=== PATIENT | female | born 1990 | race Caucasian/White ===

== ENCOUNTER 2022-03-27 15:56 | Outpatient (CLI) | payer OTHER, SELFPAY ==
[2022-03-29 23:05] LABS: Estradiol Premenol Female 45 pg/mL
[2022-03-30 02:08] LABS: Follicle Stimulating Hormone 6.6 IU/L
[2022-03-30 02:19] LABS: Prolactin 6.7 ng/mL (2.8-29.2)
[2022-03-31 20:09] LABS: Progesterone, HPLC-MS/MS <0.10 ng/mL
== END 2022-03-27 15:57 | disposition home or self-care (01) ==
LOC: NFLDREF 15:56
PROVIDERS: Visit Provider Obstetrics & Gynecology
DX: E28.2 Polycystic ovarian syndrome (principal); N97.0 Female infertility associated with anovulation
CPT/HCPCS: 82670; 83001; 83002; 84144; 84146; 84443

== ENCOUNTER 2022-04-19 16:06 | Outpatient (CLI) | payer OTHER, SELFPAY ==
[2022-04-21 19:07] LABS: Estradiol Premenol Female 37 pg/mL
[2022-04-21 21:05] LABS: Follicle Stimulating Hormone 6.9 IU/L; Luteinizing Hormone, Serum 7.7 IU/L
== END 2022-04-19 16:07 | disposition home or self-care (01) ==
PROVIDERS: Visit Provider Obstetrics & Gynecology
DX: N97.0 Female infertility associated with anovulation (principal)
CPT/HCPCS: 82670; 83001; 83002; 83520

== ENCOUNTER 2022-06-20 16:06 | Outpatient (CLI) | payer OTHER, SELFPAY ==
--- NOTE | 2022-06-20 16:00 | CRLHL7_ITS ---
For Patients: As a result of the Cures Act, medical imaging exams and procedure reports are released immediately into your electronic medical record. You may view this report before your referring provider. If you have questions, please contact your health care provider. INDICATION: First trimester scan, establish dates. COMPARISON: None. TECHNIQUE: Real-time lake-scale imaging of the pelvis was performed. FINDINGS: Sonographic imaging demonstrates a single living intrauterine gestation. The embryo demonstrates a regular cardiac rate measuring 171 beats per minute. The embryo`s crown-rump length measurement of 2.2 cm corresponds to a gestational age of 8 weeks 6 days with a sonographic due date of 01/24/2023. There is a normal-appearing yolk sac. There are no gross abnormalities noted within the embryo at this early state of development. The gestational sac has a normal appearance. There is no evidence of a perigestational hemorrhage. The amount of fluid within the sac appears appropriate for gestational age. The cervix is closed. The myometrium appears normal. The ovaries are of normal size. Corpus luteal cyst right ovary. There are no suspicious fluid collections noted in the cul-de-sac. IMPRESSION: Normal first trimester OB ultrasound exam. Gestational age calculated at 8 weeks 6 days with a sonographic due date of 01/24/2023. Dictated by Mihir Chamberlain MD @ 06/21/2022 12:49:05 PM (Electronically Signed)
== END 2022-06-20 16:07 | disposition home or self-care (01) ==
LOC: US 16:06
PROVIDERS: Visit Provider Physician Assistant
DX: Z34.91 Encounter for supervision of normal pregnancy, unspecified, first trimester (principal); Z3A.08 8 weeks gestation of pregnancy
CPT/HCPCS: 76817; 86703; 86803; 86850; 86900; 86901; 87340; 87491; 87591

== ENCOUNTER 2022-06-20 17:23 | Outpatient (CLI) | payer OTHER, SELFPAY ==
[2022-06-20 22:59] LABS: Chlamydia DNA Amplified* Not Detected (No Detected); GC DNA Amplified* Not Detected (No Detected)
== END 2022-06-20 17:24 | disposition home or self-care (01) ==
PROVIDERS: Visit Provider Physician Assistant
DX: Z34.91 Encounter for supervision of normal pregnancy, unspecified, first trimester (principal); Z3A.09 9 weeks gestation of pregnancy
CPT/HCPCS: 86592; 86703; 86762; 86787; 86803; 86850; 86900; 86901; 87086; 87340; 87491; 87591

== ENCOUNTER 2022-09-12 13:58 | Outpatient (CLI) | payer OTHER, SELFPAY ==
--- NOTE | 2022-09-12 14:00 | CRLHL7_ITS ---
For Patients: As a result of the Century Cures Act, medical imaging exams and procedure reports are released immediately into your electronic medical record. You may view this report before your referring provider. If you have questions, please contact your health care provider. INDICATION: Evaluate anatomy. COMPARISON: 06/20/2022 TECHNIQUE: Real time lake scale imaging of the fetus was performed as well as color Doppler analysis of the umbilical vessels. FINDINGS: Sonographic imaging demonstrates a single living intrauterine gestation. Fetus demonstrates a regular cardiac rate of 147 beats per minute. Fetus has a breech position. The placenta lies right posterior without evidence of placenta previa. The edge of the placenta is located more than 5 cm from the internal cervical os. Amniotic fluid volume appears normal. Single deepest vertical pocket: 5.0 cm. The cervix is closed and measures 4.5 cm in length. The composite ultrasound gestational age is calculated at 20 weeks 5 days with an estimated sonographic due date of 01/25/2023. The estimated weight is 377 grams which lies at the 27th %. The following biometric measurements were obtained: Biparietal diameter: 4.8 cm/20 weeks 4 days 29th% Head circumference: 18.2 cm/20 weeks 4 days 17th% Abdominal circumference: 15.9 cm/21 weeks 0 days 39th% Femur length: 3.4 cm/20 weeks 4 days 22nd% The HC/AC ratio measures: 1.14 range (1.06-1.25) On anatomic survey, there is a normal appearance of the cerebral ventricles, cavum septi pellucidi, cisterna magna and cerebellum. The nose, lips, and facial profile appear normal. The cervical, thoracic and lumbar spine are well visualized and appear normal. There is a normal four-chamber heart view and the left and right ventricular outflow tracts appear normal. The diaphragm and stomach appear normal. The kidneys and bladder also appear normal. There is a normal three-vessel cord and cord insertion site. The four extremities appear normal. IMPRESSION: Normal OB ultrasound exam with concordance of clinical and sonographic dating. No intrinsic abnormalities noted on anatomic survey. Dictated by Mihir Chamberlain MD @ 09/12/2022 4:52:40 PM (Electronically Signed)
== END 2022-09-12 13:59 | disposition home or self-care (01) ==
LOC: US 13:59
PROVIDERS: Visit Provider Obstetrics & Gynecology
DX: Z34.92 Encounter for supervision of normal pregnancy, unspecified, second trimester (principal); Z3A.20 20 weeks gestation of pregnancy
CPT/HCPCS: 76805

== ENCOUNTER 2022-10-27 14:11 | Outpatient (CLI) | payer OTHER, SELFPAY | END 2022-10-27 14:12 | disposition home or self-care (01) | LOC: NFLDREF 10-30 09:17 | PROVIDERS: Visit Provider Advanced Practice Midwife | DX: Z34.93 Encounter for supervision of normal pregnancy, unspecified, third trimester (principal); Z3A.28 28 weeks gestation of pregnancy | CPT/HCPCS: 86592 ==

== ENCOUNTER 2022-12-22 09:02 | Outpatient (CLI) | payer OTHER, SELFPAY ==
[2022-12-23 10:22] LABS: Strep B DNA Probe Positive (Negative)
[2022-12-23 10:23] LABS: Strep B Susceptibility Needed? No
== END 2022-12-22 09:03 | disposition home or self-care (01) ==
LOC: NFLDREF 09:02
PROVIDERS: Visit Provider Obstetrics & Gynecology
DX: Z34.93 Encounter for supervision of normal pregnancy, unspecified, third trimester (principal)
CPT/HCPCS: 87081; 87653

== ENCOUNTER 2022-12-25 16:01 | Outpatient (CLI) | payer OTHER, SELFPAY ==
--- NOTE | 2022-12-25 16:00 | CRLHL7_ITS ---
For Patients: As a result of the Century Cures Act, medical imaging exams and procedure reports are released immediately into your electronic medical record. You may view this report before your referring provider. If you have questions, please contact your health care provider. INDICATION: SIZE Discrepancy COMPARISON: 09/12/2022 TECHNIQUE: Real time lake scale imaging of the fetus was performed. FINDINGS: Sonographic imaging demonstrates a single living intrauterine gestation. Fetus demonstrates a regular cardiac rate of 134 beats per minute. Fetus has a vertex position. The placenta lies right posterior. Amniotic fluid volume appears normal and there is a single deepest vertical pocket: 6.8 cm. The estimated weight is 2811gm which lies at the 50th %. On the prior OB ultrasound exam dated 09/12/2022 the estimated weight was at the 27th%. BPD 11th percentile. HC 16th percentile. AC 75th percentile. FL 36th percentile. The HC/AC ratio measures 0.97 range (0.93-1.09). IMPRESSION: Sonographic gestational age 35 weeks 4 days and sonographic due date 01/25/2023. Good correlation with dates. Normal interval growth. Estimated weight 50th percentile. Abdominal circumference 75th percentile. Dictated by Mihir Chamberlain MD @ 12/26/2022 9:23:08 AM (Electronically Signed)
== END 2022-12-25 16:02 | disposition home or self-care (01) ==
LOC: US 16:01
PROVIDERS: Visit Provider Advanced Practice Midwife
DX: Z34.93 Encounter for supervision of normal pregnancy, unspecified, third trimester (principal); Z3A.35 35 weeks gestation of pregnancy
CPT/HCPCS: 76816

== ENCOUNTER 2023-01-15 19:32 | Outpatient (CLI) | payer OTHER, SELFPAY ==
[2023-01-15 19:58] VITALS: BP 125/71; PULSE 100
[2023-01-15 20:00] VITALS: RESP 17; TEMP 36.9
--- NOTE | 2023-01-15 22:05 | PC.OBNST ---
NST Note NST Note Start: 01/15/23 19:37 Freq: ONCE Status: Active Protocol: Document 01/15/23 21:36 SUNNY (Rec: 01/15/23 21:54 SUNNY [id number]) NST Note 2 Para (# of births) 1 EDC 01/22/23 Gestational Age In Weeks & Days 39 Weeks & 0 Days Patient Presented with Complaint(s) of Contractions/cramping Other Complaints Pt presents to Center complaining about contraction pain in lower abdomen and back . RN checked and patient was still 1cm from her clinic appointment from 01/12. RN rechecked in 1 hour and patient was still 1 cm. Reactive Yes Appropriate for Gestational Age Yes KENYATTA Roberts RN Date 01/15/23 Reactive Yes Appropriate for Gestational Age Yes KENYATTA Maguire RN Date 01/15/23 OB NST charge Yes Complete NST Note via Write Note Yes The provider's electronic signature indicates the NST is reactive/appropriate for gestational age. *Note to provider: If an addendum is required, open the patient's chart and click on the note under the Nurse/Allied Health tab.
== END 2023-01-15 21:36 | disposition home or self-care (01) ==
LOC: OB OUT 19:33 → OB 19:35
PROVIDERS: Visit Provider Advanced Practice Midwife
DX: O47.1 False labor at or after 37 completed weeks of gestation (principal); Z3A.39 39 weeks gestation of pregnancy
CPT/HCPCS: 59025; 99213

== ENCOUNTER 2023-01-24 07:13 | Inpatient (IN) | payer OTHER, SELFPAY ==
[2023-01-24] VITALS (55 sets, daily range): BP systolic 103–148; BP diastolic 52–87; PULSE 75–137; RESP 16–17; TEMP 36.4–36.8; O2SAT 62–100; BMI 39.6
--- NOTE | 2023-01-24 08:12 | W.PM.LDBA ---
Subjective History of Present Illness Narrative: Radha is being admitted to Labor and Delivery for an elective induction of labor. She is a 32 year old at 40.2 weeks gestation. Her full history and physical was dictated by Don Jara CNM on 01/05/23. Please see this for details. Specific Issues/Plans H&P 01/05/23 by Don Jara CNM 1. History of PCOS, conceived with Clomid. On metformin, will continue through 13 weeks 2. Obesity, BMI 38.0 Hemoglobin A1c:5.1% 3. History of depression and anxiety. Currently doing well without treatment. Has responded well to Celexa in the past. 4. Nausea and vomiting Zofran 5. History of , arrest of dilation and intolerance of labor -Desires -12/22 TOLAC visit done, consent for TOLAC done -Growth US at 36 weeks, EFW 50%ile 6. Normal Pap with positive HPV, negative for high-risk types in 2019 Pap at new OB: ASC-H, + HPV, neg for 16&18 [place]: 08/11 no concern for high grade lesion, no biopsy obtained; Repeat 7. Elevated WBC at [facility], follow up call: URI/cough symptoms, planning urgent care visit consider repeat CBC at next visit, repeat: remained elevated, lingering illness symptom Repeat at next visit: Normal 8. GBS+ Called and left message for patient recommending flu vaccine on 01/12. Covid: ? Tdap: received Comments: An informed consent for induction was signed in the clinic, options were reviewed today with patient and her . Risks, benefits and alternatives were reviewed and with shared decision making they have agreed with a plan of Cook balloon placement and low dose IV Pitocin. Radha would like to avoid AROM if possible. OB - Problem Based A/P Additional Plan (1) 40 weeks gestation of : Status: Acute (2) Encounter for elective induction of labor: Status: Acute (3) History of section complicating : Status: Acute Plan ASSESSMENT:? at 40.2 weeks gestation? GBS positive? Uncomplicated ? Elective IOL? TOLAC ?? PLAN:? 1. Antibiotic prophylaxis treatment per protocol? 2. Reviewed risks and benefits of IOL with pitocin and/or Cook catheter. Pt prefers Cook with low dose IV Pitcocin. ? 3. Candidate for analgesia of choice. ? 4. Anticipate ?? 5. IV placement for induction and TOLAC 6. Continuous monitoring Delivery/Labor/Induction Plan Plan: induction Induction method: Intracervical balloon catheter (low dose IV Pitocin per protocol) OB Exam Physical Exam Vital signs: Temp Pulse Resp BP 97.6 F 94 16 126/81 01/24/23 08:11 01/24/23 08:11 01/24/23 08:11 01/24/23 08:11 Narrative: Vitals Reviewed Constitutional:? Alert and oriented x3 HEENT:? Normocephalic, atraumatic Neck:? Supple Lungs:? Clear to auscultation bilaterally Heart:? Regular rate and rhythm, no murmur, rub or gallop Abdomen:? Soft, nontender, and gravid. Vertex by Tee's, confirmed with cervical exam. Extremities:? No edema or erythema Cervix: 1 cm/50%/.2 station/vertex NST: 130 bpm/moderate variability/+accelerations/-decelerations/rare contractions Detailed Labor and Delivery Exam Patient Gravid: Yes
[2023-01-24 09:28] LABS: Basophils Percent Auto 0.4 % (0.0-3.0); Hematocrit 37.8 % (33.0-51.0); Hemoglobin* 12.8 gm/dL (12.0-16.0); Immature Granulocytes Pct Auto 0.3 %; Lymphocytes Percent Auto 15.8 % (20-44); Mean Corpuscular HGB Conc 34 gm/dL (32-36); Mean Corpuscular Hemoglobin 31 pg (26-34); Mean Corpuscular Volume 93 fL (80-100); Neutrophils Percent Auto 74.5 % (42.0-72.0); Platelet Count* 291 K/uL (140-440); RDW Coefficient of Variation % 12.4 % (11.5-15.5); Red Blood Count 4.07 m/uL (4.00-5.20); White Blood Count* 13.05 K/uL (4.50-11.00)
[2023-01-24 09:39] LABS: Slide Review Reflex Yes
[2023-01-24] MEDS: LACTATED RINGERS 1000 ML 1,000 ML 125 ML IV ×2 (09:39→22:49)
[2023-01-24] MEDS: OXYTOCIN 30 unit/500 ML in NS 30 UNIT/500 ML BAG IVPB ×2 (09:44→21:17)
[2023-01-24] MEDS: AMPICILLIN 2 GM in 0.9 % SODIUM CHLORIDE Mini-bag 100 ML IVPB (09:49)
[2023-01-24 12:57] LABS: Alanine Aminotransferase* 12 U/L (4-35); Aspartate Amino Transferase* 17 U/L (12-35); Blood Urea Nitrogen* 4 mg/dL (5-24); Creatinine* 0.5 mg/dL (0.5-1.5); Est. Creatinine Clearance* 130.12; Estimated Glomerular Filt Rate 129 ml/min
[2023-01-24 13:33] LABS: Total Protein Urine 53 mg/dL
[2023-01-24 13:34] LABS: Creatinine Urine 33.1 mg/dL
[2023-01-24] MEDS: LACTATED RINGERS 1000 ML 1,000 ML IV (14:04)
[2023-01-24] MEDS: AMPICILLIN 1 GM in 0.9 % SODIUM CHLORIDE Mini-bag 100 ML IVPB ×3 (14:08→22:08)
--- NOTE | 2023-01-24 16:03 | PM.OBPNL ---
Subjective Date Seen: 01/24/23 Narrative: Radha is coping well with labor pain/contractions. ?Baldo is with her for support. ?She would like to continue with breathing and repositioning for comfort and pain management. She had a Cook catheter placed this morning around 0800, Had SROM for clear fluid at 0926 and Cook was removed at that time. IV Pitocin has been given per protocol for induction, last dose was 4mu/hr. Recently the IV Pitocin was turned off for concerns about late decelerations. Currently, there are no late decelerations noted in the last 5 minutes. Radha has been tearful at times and relates this to her last labor which resulted in a C/S. Reassurance given and time allowed to process. ? Objective Exam: VSS, afebrile General Appearance:? Calm, cooperative. ?No acute distress. ? Psychiatric Exam: Alert and oriented, appropriate affect Abdomen: Gravid Ctx: ?Q 3-4 min apart. ? ?Moderate ? FHTs: ?Baseline: 125. ? ? Variability: moderate. ?Accels: present. ? ?Decels: ?early and occasional lates. SVE: 3/90%/-2 Membranes: ?SROM clear fluid ?AROM X 6.5 hours Vital Signs: Last Vital Signs Temp 97.5 F L 01/24/23 15:06 Pulse 98 01/24/23 15:05 Resp 17 01/24/23 15:06 BP 133/79 01/24/23 15:05 Pulse Ox 100 01/24/23 15:43 Pelvic Exam Dilation (cm): 3 Effacement (%): 90 Station: -2 Contractions Monitor mode: External Contraction pattern: Regular Contraction intensity: Moderate Assessment Assessment: induction ongoing Station: -2 Amniotic Membrane Status: SROM Status: Category ll Heart Rate Baseline: 125 Skilled Nursing Variability: Moderate (6-25) Monitor Accelerations: Present Monitor Decelerations: Late Plan Plan: Assessment:?? at 40.2 gestation?? GBS positive Patient is coping well with challenges of labor.?? Labor type: Induced, Early labor? complicated by: 1. History of PCOS, conceived with Clomid. 2. Obesity, BMI 38.0 3. History of depression and anxiety. Currently doing well without treatment. 4. History of , arrest of dilation and intolerance of labor 5. GBS+ Labor complicated by: NA? Plan:?? GBS +,Antibiotic prophylaxis treatment per protocol? Continue with routine intrapartum cares as ordered.?? Induction ongoing, IV Pitocin off at this time. Restart if contractions space out and reassuring FHTs. Continuous monitoring per protocol for TOLAC and induction. Patient encouraged to move and change positions to promote physiologic labor and .?? Nonpharmacologic comfort measures per patient preference. Candidate for analgesia of choice if desired. Anticipate progress to NVD. ?
[2023-01-24 16:23] LABS: Slide Review Acceptable Review (Acceptable)
--- NOTE | 2023-01-24 21:30 | PM.OBPNL ---
Subjective Date Seen: 01/24/23 Narrative: ?Radha is coping well with labor pain/contractions. ?Baldo is with her for support. ?Her contractions are still painful for her although they have space out in frequency. Recent vaginal exam is unchanged from previous check and no change in station. Discussed current progress and recommended we restart IV Pitocin per protocol. Agrees with the plan that she start to use Nitrous for comfort and pain management.?A FSE was placed earlier for difficulty monitoring heart rate. She has continued to change positions frequently with the help of nursing staff. Objective Exam: VSS, afebrile General Appearance:? Calm, cooperative. ?No acute distress. ? Psychiatric Exam: Alert and oriented, appropriate affect Abdomen: Gravid Ctx: ?Q 6-8 min apart. ? ?Moderate ? FHTs: ?Baseline: 120. ? ? Variability: moderate. ?Accels: +. ? ?Decels: ?early. SVE: 4/100/-2 Membranes: ?SROM ?AROM X 12 hours Vital Signs: Last Vital Signs Temp 98.1 F 01/24/23 19:41 Pulse 91 01/24/23 18:08 Resp 16 01/24/23 19:41 BP 124/65 01/24/23 18:08 Pulse Ox 98 01/24/23 18:03 Pelvic Exam Dilation (cm): 4 Effacement (%): 100 Station: -2 Contractions Monitor mode: External Contraction pattern: Regular Contraction intensity: Moderate Assessment Assessment: induction ongoing Station: -2 Amniotic Membrane Status: SROM Status: Category ll Heart Rate Baseline: 120 Intermediate Variability: Moderate (6-25) Monitor Accelerations: Present Monitor Decelerations: Early Plan Plan: Assessment:?? at 40.2 gestation?? GBS positive Patient is coping well with challenges of labor.?? Labor type: Induced, Early labor? complicated by: 1. History of PCOS, conceived with Clomid. 2. Obesity, BMI 38.0 3. History of depression and anxiety. Currently doing well without treatment. 4. History of , arrest of dilation and intolerance of labor 5. GBS+ Plan:?? GBS +,Antibiotic prophylaxis treatment per protocol? Continue with routine intrapartum cares as ordered.?? Induction ongoing, Restart IV Pitocin per protocol. Continuous monitoring per protocol for TOLAC and induction. Patient encouraged to move and change positions to promote physiologic labor and .?? Nonpharmacologic comfort measures per patient preference. Candidate for analgesia of choice if desired. Currently using Nitrous per protocol. Anticipate progress to NVD.
[2023-01-24] MEDS: ROPIVACAINE 0.2% 100 ml 100 ML 10 MG EPIDURAL (22:25)
[2023-01-24] MEDS: LIDOCAINE 2% (PF) 5 ML VIAL EPIDURAL (22:25)
--- NOTE | 2023-01-24 22:29 | P.ANBPRC_ITS ---
[facility] Medical History Oligomenorrhea ?N91.5 - Oligomenorrhea, unspecified (ICD-10) History of female infertility ?Z87.42 - Personal history of other diseases of the female genital tract (ICD-10) History of abnormal cervical Papanicolaou smear ?Z87.42 - Personal history of other diseases of the female genital tract (ICD-10) Infertility associated with anovulation ?N97.0 - Female infertility associated with anovulation (ICD-10) PCOS (polycystic ovarian syndrome) ?E28.2 - Polycystic ovarian syndrome (ICD-10) Surgical History Status post primary low transverse section (12/10/19) ?Z98.891 - History of uterine scar from previous surgery (ICD-10) History of third molar tooth extraction (2020) ?K08.409 - Partial loss of teeth, unspecified cause, unspecified class (ICD- 10) History of laparoscopic cholecystectomy (2020) ?Z90.49 - Acquired absence of other specified parts of digestive tract (ICD- 10) Family History Brother Congenital heart defect Mother Pancreatitis Depression Brother Diabetes Maternal Grandmother Breast cancer Lung cancer Maternal Grandfather Colon cancer Paternal Grandmother Macular degeneration Social History What is your current living situation?: I presently have a place to live Problems where you live: no known problems In the past 12 months, utilities in danger of being shut off: no In past 12 months, lack of transportation kept you from medical appts, meetings, work, or getting things needed for daily living: no In the past 12 mos, have been you worried that your food would run out before you had money to buy more?: never true In the past 12 mos, the food you bought just didn't last and you didn't have money to buy more?: never true Smoking Status: Never smoker How often does anyone, including family, friends and others, physically hurt you : never How often does anyone, including family, friends and others, insult or talk down to you: never How often does anyone, including family, friends and others, threaten you with harm: never How often does anyone, including family, friends and others, scream or curse at you: never Little interest or pleasure in doing things: not at all Feeling down, depressed, or hopeless: several days Meds Home Medications and Allergies Home Medications Medication Instructions Recorded Confirmed Type prenat.vits,bessy,kzt-xral-qkugp 1 tab PO QDAY 06/20/22 01/24/23 History triamcinolone acetonide 0.1 % 1 applic topical BID PRN 11/10/22 01/24/23 History topical cream loratadine 10 mg tablet (Allergy 10 mg PO DAILY 01/15/23 01/24/23 History Relief (loratadine)) Allergies Allergy/AdvReac Type Severity Reaction Status Date / Time azithromycin Allergy Unknown Diarrhea Verified 01/19/23 15:28 Results Labs Labs: Laboratory Results - last 24 hr 01/24/23 01/24/23 01/24/23 09:22 12:03 13:00 WBC 13.05 H RBC 4.07 Hgb 12.8 Hct 37.8 MCV 93 MCH 31 MCHC 34 RDW Coeff of Stephanie 12.4 Plt Count 291 Neut % (Auto) 74.5 H Lymph % (Auto) 15.8 L [place] % (Auto) 7.0 Eos % (Auto) 2.0 Baso % (Auto) 0.4 Neut # (Auto) 9.70 H Lymph # (Auto) 2.10 [place] # (Auto) 0.90 Eos # (Auto) 0.30 Baso # (Auto) 0.10 Abs Immat Gran (auto) 0.00 Imm/Tot Granulo (auto) 0.3 Diff Slide Review Acceptable Review BUN 4 L Creatinine 0.5 Estimated Creat Clear 130.12 Estimated GFR 129 AST 17 ALT 12 Urine Creatinine 33.1 Protein/Creatinin Ratio 1.60 H Urine Total Protein 53 Blood Type O Positive Antibody Screen NEGATIVE Vital Signs Vital Signs: Last Vital Signs Temp 98.1 F 01/24/23 19:41 Pulse 111 H 01/24/23 22:26 Resp 16 01/24/23 19:41 BP 110/65 01/24/23 22:26 Pulse Ox 96 01/24/23 22:27 Weight: 98.203 kg Height: 157.48 cm Anesthesia Procedures Epidural Insertion Patient Location: OB Start Time: 22:00 Stop Time: 22:45 Start Date: 01/24/23 Stop Date: 01/24/23 Reason for Block: primary anesthetic Patient Position: sitting Performed By: Chucky Anderson Preanesthetic Checklist: IV checked, risks and benefits discussed, surgical consent, monitors and equipment checked, pre-op evaluation, timeout performed and anesthesia consent Prep: chlorhexidine gluconate Monitoring: blood pressure monitoring, cardiac monitor technician, continuous pulse oximetry and heart rate Approach: midline Vertebral Space: lumbar (1-5) Needle Type: Tuohy needle Injection Technique: continuous catheter (catheter) Needle gauge: 17 Needle Length (cm): 10 cm Needle Insertion Depth (cm): 5 Catheter Gauge: 19 Catheter Type: multi-orifice Catheter at skin depth (cm): 10 Test Dose Result: negative and lidocaine 1.5% with epinephrine 1 to 200,000
[2023-01-24] MEDS: PHENYLEPHRINE 100 MCG/ML SYRINGE IVP ×3 (22:42→22:50)
[2023-01-24] MEDS: ePHEDrine sulfate 5 MG/ML inj 10 MG IVP (22:54)
[2023-01-24] MEDS: ONDANSETRON 2 MG/ML inj 4 MG IV (23:00)
[2023-01-25] VITALS (149 sets, daily range): BP systolic 90–140; BP diastolic 53–86; PULSE 86–149; RESP 16–17; TEMP 36.7–37.2; O2SAT 90–100
[2023-01-25] MEDS: ePHEDrine sulfate 5 MG/ML inj 10 MG IVP (01:11)
--- NOTE | 2023-01-25 01:43 | PM.OBPNL ---
Subjective Date Seen: 01/25/23 Narrative: ?Radha is coping well with labor pain/contractions. ?Baldo is with her for support. ?She now has an epidural for comfort and pain management. She has continued to reposition in bed often.?Was called to the bedside to evaluate labor progress after episode of late variables which resolved with repositioning and turning off the IV Pitocin. Pitocin rate was 4mu/hr when stopped. Options were discussed to continue with induction or consult with OB for C/S. SVE done, 7cm baby in OT position at this time. Pt and wish to continue with induction. Plan to take break and restart IV Pitocin as needed for adequate contractions, titrate per protocol and response. Objective Exam: VSS, afebrile General Appearance:? Calm, cooperative. ?No acute distress. ? Psychiatric Exam: Alert and oriented, appropriate affect Abdomen: Gravid Ctx: ?Q 2-5 min apart. ? ?Strong FHTs: ?Baseline: 125. ? ? Variability: moderate. ?Accels: +. ? ?Decels: episode of late decelerations, resolved at this time. SVE: 7/100/-2 Membranes: ?SROM X 17 hours Vital Signs: Last Vital Signs Temp 98.6 F 01/25/23 01:13 Pulse 114 H 01/25/23 01:40 Resp 17 01/25/23 01:13 BP 100/54 L 01/25/23 01:40 Pulse Ox 96 01/25/23 01:38 Pelvic Exam Dilation (cm): 7 Effacement (%): 100 Station: -2 Contractions Monitor mode: External Contraction pattern: Regular Contraction intensity: Moderate Pitocin Rate (mU/min): 0 Assessment Station: -2 Amniotic Membrane Status: SROM Status: Category ll Heart Rate Baseline: 125 Agency Sales Management Assistant Variability: Moderate (6-25) Monitor Accelerations: Present Monitor Decelerations: Late Plan Plan: Assessment:?? at 40.3 gestation?? GBS + Patient is coping well with challenges of labor.?? Labor type: Induced, Active labor? complicated by: complicated by: 1. History of PCOS, conceived with Clomid. 2. Obesity, BMI 38.0 3. History of depression and anxiety. Currently doing well without treatment. 4. History of , arrest of dilation and intolerance of labor 5. GBS+ Plan:?? GBS +,Antibiotic prophylaxis treatment per protocol? Continue with routine intrapartum cares as ordered.?? Induction ongoing, Restart IV Pitocin per protocol. Continuous monitoring per protocol for TOLAC and induction. Patient encouraged to move and change positions to promote physiologic labor and .?? Epidural for pain management currently in place. Surgical team and MD notified and on standby. Anticipate progress to NVD.
[2023-01-25] MEDS: OXYTOCIN 30 unit/500 ML in NS 30 UNIT/500 ML BAG IVPB (02:08)
[2023-01-25] MEDS: AMPICILLIN 1 GM in 0.9 % SODIUM CHLORIDE Mini-bag 100 ML IVPB ×2 (02:31→06:05)
[2023-01-25] MEDS: LACTATED RINGERS 1000 ML 1,000 ML 125 ML IV (04:04)
[2023-01-25] MEDS: ROPIVACAINE 0.2% 100 ml 100 ML 10 MG EPIDURAL (07:04)
--- NOTE | 2023-01-25 07:08 | PM.OBPNL ---
Subjective Time Seen by Provider: 07:08 Date Seen: 01/25/23 Narrative: Fabricio Sprague CNM has been to see the patient and attempt E manual rotation of the fetus. I obtained verbal consents from the patient. On exam the presentation was L OT and the vertex was rotated counter-clockwise to direct OA. The patient was then placed on her right side with a peanut ball in place. Cervical exam was 9+ cm/100%/-1 to -2 with significant caput. Objective Vital Signs: Last Vital Signs Temp 98.9 F 01/25/23 05:43 Pulse 111 H 01/25/23 06:56 Resp 17 01/25/23 05:43 BP 107/61 01/25/23 06:56 Pulse Ox 99 01/25/23 07:03 Pelvic Exam Dilation (cm): 7 Effacement (%): 100 Station: -2 Contractions Monitor mode: External Contraction pattern: Regular Contraction intensity: Moderate Pitocin Rate (mU/min): 0 Assessment Station: -2 Amniotic Membrane Status: SROM Status: Category ll Heart Rate Baseline: 125 Monitor Accelerations: Present Monitor Decelerations: Late
--- NOTE | 2023-01-25 08:25 | P.OBPN_ITS ---
Subjective Time Seen by Provider: 08:25 Date Seen: 01/25/23 Narrative: Radha is a at 40 3/7 weeks gestation who was admitted yesterday for elective IOL. Her labor progressed with pitocin to anterior lip. MD Joselo was called to assess due to persistant anterior lip and was able to successfully rotate the head. She has since been laboring in side lying release and is currently sitting in high fowlers. Objective Exam: Objective: Constitutional: Alert and oriented x3, [mild/moderate/severe] distress, coping well Vital signs stable, see nurse documentation Abdomen: gravid, contractions palpate [mild/moderate/strong] with contractions and soft between Cervix: 9.5 cm/+1 station/vertex NST: 135 bpm/moderate variability/15x15 accelerations/no decelerations/contractions every 2-5, difficult to strip picker with [place] due to maternal position Vital Signs: Last Vital Signs Temp 98.1 F 01/25/23 07:25 Pulse 99 01/25/23 10:40 Resp 16 01/25/23 07:25 BP 134/81 01/25/23 10:40 Pulse Ox 100 01/25/23 09:59 Contractions Monitor mode: External Contraction pattern: Regular Contraction intensity: Moderate Pitocin Rate (mU/min): 0 Assessment Station: -2 Amniotic Membrane Status: SROM Status: Category ll Heart Rate Baseline: 125 Monitor Accelerations: Present Monitor Decelerations: Late Plan Plan: Plan recheck in abut 1 hour. If anterior lip still present, consider reducing and attempting to push. Patient agrees with plan. Dr. Juárez aware of patient status. OR Team and MD in house for TOLAC.
[2023-01-25] MEDS: LIDOCAINE 1 % PF 30 ML INJECTION (10:15)
[2023-01-25] MEDS: miSOPROStoL 800 MCG/4 TABLET PR (10:32)
--- NOTE | 2023-01-25 11:07 | W.PM.OBVAGDE ---
OB Procedure Vag Delivery Mother Details Mother Details: The patient is a 32 year-old, 2, now Para 2, admitted on 01/24/23 at 40 2/7 gestation. : 2 Para: 2 Weeks Gestation: 40.3 Admission Date: 01/24/23 Additional Details Amniotic Membrane Status: SROM Amniotic Membrane Rupture Date: 01/24/23 Amniotic Membrane Rupture Time: 09:36 Amniotic Membrane Fluid Description: Clear Analgesia/Anesthesia Type: Epidural Waterbirth: No Pitcoin: Yes Intrapartal Events: Labor Induction and ROM >18 Hours Induction Method: Intracervical balloon catheter and per pitocin protocol Labor Onset: 01:33 Complete: 09:01 Pushin:57 Heart: heart tones during second stage were Category II with variables and lates during contractions with pushing. At times, slow return to baseline but improved with guided breathing and repositioning. Overall reassuring. Delivery Details Delivery Date: 01/25/23 Delivery Time: 10:01 Route of delivery: Gender: Female Viability: Alive; Heart Rate Present Position at Delivery: OA Delivery Details: Patient was admitted for elective induction which was started with cook catheter and pitocin. She SROM'd at 0936 with clear fluid. Her labor progress slowly and she remained anterior lip for multiple hours. MD was consulted to assess position and a successful attempt was made to rotate to OA. Additional attempts were made with maternal positioning to resolve remaining cervix but ultimately the decision was made to attempt to reduce cervix and push past it. Cervix was reduced with good maternal pushing effort at 0857 and complete at 0901. of a viable female at 1001 in semi-fowlers on the bed. Vertex delivered OA. Tight nuchal identified at delivery, unable to reduce. Attempted to delivery through but ultimately reduced after delivery of body. No shoulder. Body delivered easily and without incident. passed to mothers abdomen and appeared stunned with minimal efforts made with stimulation. Decision made to clamp and cut, <30 seconds, and infant was taken to warmer for further assessment. CPAP was given for a few minutes by RN then recovered and spontaneously cried. APGARS were 3 at one minute and 8 at five minutes respectively. Mouth was bulb suctioned. Intact placenta with a 3 vessel cord delivered spontaneously at 1008. Fundus firm. 1st degree vaginal laceration identified and repaired in typical fashion. QBL 700 cc, most from laceration. Patient received pitocin and cytotec. Mother and baby stable; mother plans to breastfeed. weight 3010g. GBS +, adequately treated. 1 Minute Interval Total Score: 3 5 Minute Interval Total Score: 8 Additional Details Placenta Delivery Time: 10:08 Placental Delivery Description: Spontaneous Delivery repair: Vicryl Procedure Done: Global Blood Loss: 700 Laceration: Vaginal - 2nd Degree Blood Loss Measurement Type: QBL Bakri Used: No Sponge/Need Count Correct: Yes Cord Vessel Description: 3 Vessels, Nuchal Cord, Tight and Reduced (after of body) Event Summary Status: Mother and infant were stable after delivery. Disposition: floor
[2023-01-25] MEDS: IBUPROFEN 600 MG TABLET PO ×2 (12:58→19:21)
[2023-01-26 00:05] VITALS: BP 110/71; PULSE 93; RESP 16; TEMP 36.7; O2SAT 97
[2023-01-26] MEDS: IBUPROFEN 600 MG TABLET PO ×4 (01:11→21:10)
[2023-01-26 07:14] LABS: Hemoglobin* 9.2 gm/dL (12.0-16.0)
--- NOTE | 2023-01-26 07:29 | PM.OBPNVD1 ---
OB - PN:Subj Subjective Date Seen: 01/26/23 Patient comments OB post-: pain well controlled, perineal pain, tolerating diet and flatus present [place] status: and doing well [place] feeding status: exclusively Narrative: Radha is a 32 y.o. who was admitted to [facility] for elective induction of labor. ?She had an uncomplicated NVD.?The patient feels well. ?The pain is well controlled with current medications. ?She has no new complaints. ?She is breast feeding and reports things are going well.? the patient has done well.? Vitals have been stable.? She has remained afebrile.? Has a good appetite, is tolerating a general diet. ?She is voiding without difficulty.? She is passing gas and has not had a bowel movement.? She is ambulating and denies any dizziness.? Has small amount of rubra lochia. OB - PN: Obj Exam Physical Exam: Vital signs: Temp Pulse Resp BP Pulse Ox O2 Del Method 98.0 F 93 16 110/71 97 Room Air 01/26/23 00:05 01/26/23 00:05 01/26/23 00:05 01/26/23 00:05 01/26/23 00:05 01/26/23 00:05 Narrative: GENERAL APPEARANCE:? normal affect, alert, no distress MOOD:? appropriate CHEST:? clear to auscultation HEART:? regular rate and rhythm ABDOMEN:? soft, non-tender the uterine fundus is At Umbilicus, Midline and is appropriate for the stage of recovery. PERINEUM:? mild edema of the perineum, there is a Vaginal Laceration, 2nd degree, that is healing well. EXTREMITIES:? normal and no edema [Incision]: [Healing well, no surrounding erythema, abnormal induration or discharge] OB - PN: Obj Data Labs Labs: Laboratory Results - last 24 hr 01/26/23 07:07 Hgb 9.2 L OB - PN: A/P Delivery Assessment and Plan (1) care and examination immediately after delivery: Status: Acute (2) Anemia due to acute blood loss: Status: Acute (3) Lactating mother: Status: Acute Plan day: 1 Plan: routine care Comments: plan: Routine care , may see if needed Hgb 9.2. Iron supplement ordered orally every other day Anticipate discharge tomorrow.
[2023-01-26 07:40] VITALS: BP 109/73; PULSE 79; RESP 16; TEMP 36.6; O2SAT 97
[2023-01-26] MEDS: FERROUS SULFATE 325 MG TABLET PO (08:45)
[2023-01-26] MEDS: DOCUSATE SODIUM 100 MG CAPSULE PO (08:45)
[2023-01-26 16:15] VITALS: BP 103/68; PULSE 102; RESP 16; TEMP 36.6; O2SAT 97
[2023-01-26 20:14] VITALS: BP 110/70; PULSE 103; RESP 16; TEMP 36.6; O2SAT 98
[2023-01-27 04:04] VITALS: BP 114/75; PULSE 92; RESP 18; TEMP 36.9; O2SAT 97
[2023-01-27] MEDS: IBUPROFEN 600 MG TABLET PO ×2 (04:08→10:17)
[2023-01-27 08:13] VITALS: BP 110/75; PULSE 90; TEMP 36.9; O2SAT 98
--- NOTE | 2023-01-27 09:06 | P.DS_ITS ---
DS: Providers Provider Date Seen: 01/27/23 Date of admission: 01/24/23 07:13 Primary care physician: Not a Local Provider Admitting Clinician: Fabricio Sprague CNM Attending Physician on discharge: Fabricio Sprague CNM Date of Discharge: 01/27/23 DS: Diagnosis Discharge Diagnosis (1) Lactating mother: Status: Acute (2) care following vaginal delivery: Status: Acute (3) Anemia due to acute blood loss: Status: Acute Exam Narrative: Exam Narrative: GENERAL APPEARANCE:? normal affect, alert, no distress? MOOD:? appropriate? CHEST:? clear to auscultation and percussion? HEART:? regular rate and rhythm? ABDOMEN:? soft, non-tender the uterine fundus is U/2 and is appropriate for the stage of recovery.? PERINEUM:? mild edema of the perineum, there is a 2nd degree vaginal that is healing well.? EXTREMITIES:? normal and no edema? Const: Vital Signs, click to edit/add: Vital Signs - 24 hr 01/26/23 16:15 01/26/23 20:14 01/27/23 04:04 Temperature 97.8 F 98 F 98.5 F Pulse Rate [Blood Pressure Cuff] 102 H 103 H 92 Respiratory Rate 16 16 18 Blood Pressure [Le ft Arm] 103/68 110/70 114/75 Pulse Oximetry 97 98 97 Oxygen Delivery Me thod Room Air Room Air Room Air 01/27/23 08:13 Temperature 98.5 F Pulse Rate [Blood Pressure Cuff] 90 Respiratory Rate Blood Pressure [Le ft Arm] 110/75 Pulse Oximetry 98 Oxygen Delivery Me thod Room Air Documenting provider has reviewed patient's vital signs: yes OB - DS: Summary Hospital Course Hospital Course: The patient is a 32 year old G 2 P 2 at 40.3 weeks gestation that was admitted to the Center on 01/24/23 for elective IOL. She had an uncomplicated vaginal delivery. She delivered a viable female infant. She is breast feeding and states that it is going very good and denies complications or concerns. P ostpartum the patient has done well. She was tearful when I saw her with concerns of baby being jaundice and needing photo therapy. She is aware that she can room in with her baby if she needs to stay for photo therapy but she will be discharged. She does have a history of anxiety and depression. She feels that her mood is good at this time outside of this current worry and denies the need for intervention at this time. She is aware that she can be seen at any time for mood concerns. She is unsure what se is planning for control but is considering condoms or diaphragm as she feels that the mini pill increased her depression after her last child. Peripartum Data delivery method: Vaginal Laceration description: Vaginal - 2nd Degree Episiotomy description: None complications: none Infant Gender: Female Infant Discharge Plan: Home Status at Discharge Functional status at discharge: independent ambulation Overall status at discharge: patient is progressing back to baseline Time Spent with Patient Time attestation: Total time spent providing and/or coordinating discharge services: Discharge Plan Discharge Disposition: Home, Self-Care Date of Admission: 01/24/23 07:13 Attending Provider on Discharge: Lazara Jara Primary Care Provider: Provider,Not a Local Condition: Stable Anticipated Discharge Date/Time: 01/27/23 10:00 Discharge Medications: New docusate sodium 100 mg Capsule 100 mg PO DAILY Qty: 60 0RF Rx Instructions: Take 1-2 tablets daily as needed for constipation. ferrous sulfate 325 mg (65 mg iron) Tablet 325 mg PO Q48H Qty: 60 0RF Rx Instructions: Take every other day of on Mondays, Wednesdays, and Fridays. ibuprofen 600 mg Tablet 600 mg PO Q6H PRNQty: 30 0RF Continued prenat.vits,bessy,qry-lyel-jetna Tablet 1 tab PO QDAY triamcinolone acetonide 0.1 % cream 1 applic topical BID PRN loratadine [Allergy Relief (loratadine)] 10 mg tablet 10 mg PO DAILY No Action (DME) breast pump Device See Rx Instructions .Route Qty: 1 0RF Hold Instructions: not using at the moment Rx Instructions: As directed Discharge Orders: Discharge Order (Routine); Ordered 01/27/23 Ordered By: Lazara Jara Patient Education: OB Vaginal/Breast Feeding Additional Instructions: Discharge instructions were reviewed with the patient including signs and symptoms of infection and home going medications.? Lifting Restrictions: 20 pounds for 6? weeks? ?? Do not drive while taking narcotic pain meds.? Off Work or School for 6 weeks.? ?? Symptoms to report to doctor:? -Bleeding that saturates more than one pad per hour? -Passing clots larger than the size of a golf ball? -Pain not relieved by prescribed medication? -Fever above 100.4 degrees Fahrenheit? -A foul vaginal odor? -Difficulty in emotions, mood and functions? -Thoughts of hurting yourself and/or ? -Painful, reddened area in your breast? -Any drainage, redness or tenderness in your IV/epidural site? -Severe headache that doesn't improve after taking medications? -Changes in vision, including temporary loss of vision, blurred vision, and/or light sensitivity? -Upper abdominal pain (usually under ribs on the right side)? -Decrease in urination or painful, frequent urinating? -Chest pain? -Shortness of breath? -Tenderness or pain with redness and/swelling in the calf(s) of your leg? ?? Follow Up in clinic in 2 and 6 weeks.? ?? consultation services are available to all mothers and babies for the first year after delivery.? To make an appointment, please call [phone].? Activity Level: Activity as Tolerated Discharge Diet: Regular Follow Up Appointments: Provider,Not a Local [Primary Care Provider] - [facility] [Provider Group] Forms: MyHealth Info Instructions
[2023-01-27] MEDS: DOCUSATE SODIUM 100 MG CAPSULE PO (10:18)
== END 2023-01-27 10:37 | disposition home or self-care (01) | DRG 806 ==
PROVIDERS: Advanced Practice Midwife; Admitting Provider Advanced Practice Midwife; Visit Provider Advanced Practice Midwife
DX: O34.211 Maternal care for low transverse scar from previous cesarean delivery (principal); D62 Acute posthemorrhagic anemia; Z37.0 Single live birth; O90.81 Anemia of the puerperium; O99.824 Streptococcus B carrier state complicating childbirth; O70.1 Second degree perineal laceration during delivery; O99.284 Endocrine, nutritional and metabolic diseases complicating childbirth; E28.2 Polycystic ovarian syndrome; O99.344 Other mental disorders complicating childbirth; F32.A Depression, unspecified; F41.9 Anxiety disorder, unspecified; Z3A.40 40 weeks gestation of pregnancy
CPT/HCPCS: 1967; 36415; 59200; 82565; 82570; 84156; 84450; 84460; 84520; 85018; 85025; 86850; 86900; 86901; A9270; C1726; J0290; J2001; J2371; J2405; J2795; J7120

== ENCOUNTER 2024-12-23 16:04 | Outpatient (CLI) | payer OTHER, SELFPAY ==
--- NOTE | 2024-12-23 16:00 | CRLHL7_ITS ---
For Patients: As a result of the Cures Act, medical imaging exams and procedure reports are released immediately into your electronic medical record. You may view this report before your referring provider. If you have questions, please contact your health care provider. OB ULTRASOUND INDICATION: Dating and viability. TECHNIQUE: Real time grayscale imaging of the fetus was performed. Transvaginal. Transvaginal imaging performed to better demonstrate the endometrium and ovaries. LMP: 10/20/2024. FAUSTINO by LMP: 07/27/2025. GA: 9 w, 1 d. Previous US: No. CRL: 1.7 cm. 8 w 1 d. FAUSTINO: 08/03/2025. FHR: 165 BPM. Gestational sac: 2.7 cm. Appears within normal limits. Yolk sac: 3.1 mm. Appears within normal limits. Right ovary: 3.4 x 2.5 x 2.9 cm. Left ovary: 3.2 x 1.4 x 2.2 cm. IMPRESSION: Single living intrauterine measures 8 weeks 1 day with sonographic due date 08/03/2025. Mihir Chamberlain M.D. Diagnostic Radiologist [email or web address] RASHID/kobe bullock/Dictated by: Mihir Chamberlain MD @ 12/23/2024 5:34:00 PM (Electronically Signed)
== END 2024-12-23 16:05 | disposition home or self-care (01) ==
LOC: US 16:04
PROVIDERS: Visit Provider Registered Nurse
DX: Z34.91 Encounter for supervision of normal pregnancy, unspecified, first trimester (principal); Z3A.08 8 weeks gestation of pregnancy
CPT/HCPCS: 76817

== ENCOUNTER 2024-12-23 17:09 | Outpatient (CLI) | payer OTHER, SELFPAY ==
[2024-12-23 21:50] LABS: Chlamydia DNA Amplified* NOT DETECTED (No Detected); GC DNA Amplified* NOT DETECTED (No Detected)
[2024-12-26 03:57] LABS: HPV Source Cervix
[2024-12-29 09:51] LABS: Pap Test Digital Imaging Done
== END 2024-12-23 17:10 | disposition home or self-care (01) ==
PROVIDERS: Visit Provider Registered Nurse
DX: Z12.4 Encounter for screening for malignant neoplasm of cervix (principal); Z34.91 Encounter for supervision of normal pregnancy, unspecified, first trimester
CPT/HCPCS: 83020; 83021; 85660; 86592; 86703; 86704; 86706; 86762; 86787; 86803; 86850; 86900; 86901; 87086; 87340; 87491; 87591; 87624; 87625; 88141; 88142; 88175